=== PATIENT | female | born 1985 | race Caucasian/White ===

== ENCOUNTER → 2022-04-24 | Outpatient (REF) | payer BC | LOC: M SFHCWAGY 17:27 | PROVIDERS: ATTEND Nurse Practitioner Family | DX: Z12.4 Encounter for screening for malignant neoplasm of cervix (principal) ==

== ENCOUNTER → 2022-08-21 | Outpatient (CLI) | payer BC | LOC: M WHC 09:28 | PROVIDERS: ATTEND Nurse Practitioner Family | DX: N94.10 Unspecified dyspareunia (principal) ==

== ENCOUNTER → 2023-06-24 | Outpatient (CLI) | payer BC | LOC: M WHC 08:55 | PROVIDERS: ATTEND Nurse Practitioner Family | DX: Z12.31 Encounter for screening mammogram for malignant neoplasm of breast (principal) ==